=== PATIENT | female | born 1990 | race Caucasian/White ===

== ENCOUNTER → 2020-03-18 | Outpatient (CLI) | payer MEDICAID ==
[~2020-03-18] MED LIST: ACHD5005 PO; DOCU100C37 PO; FERR325T18 PO; FRS325T PO; IBP600T1 PO; IBUP-1773 PO; PREN1TAB39 PO; PROM12.59 PO
--- NOTE | 2020-03-18 14:33 | Diagnostic Imaging Report ---
INDICATION: Palpable lump around the left nipple. FINDINGS: Sonographic interrogation of the area of palpable abnormality was performed. There is a hypoechoic mass just below the skin surface. This measures 1.5 x 0.6 x 1.3 cm. There is color flow at the periphery but no internal blood flow is seen. This has the appearance of a sebaceous cyst. No posterior acoustic shadowing is present. IMPRESSION: Circumscribed hypoechoic mass just below the skin surface at the level of the 11 o'clock retroareolar region. This has the appearance of a sebaceous cyst. A followup left breast ultrasound in 3 months is recommended to show continued stability. ACR BI-RADS Category 3: Probably benign findings. Dictated by: Dictated on workstation # [id number]
== END ==
LOC: RAD 13:15
PROVIDERS: ATTEND Nurse Practitioner Family
DX: N63.22 Unspecified lump in the left breast, upper inner quadrant (principal)
CPT/HCPCS: 76642

== ENCOUNTER 2021-04-17 21:57 | Emergency (ER) | payer MEDICAID ==
[~2021-04-17] VITALS: Ht 162.6 cm; Wt 104.3 kg
[2021-04-17 22:08] VITALS: BP 121/86
[2021-04-17] MEDS ORDERED: DOXYCYCLINE 100 MG (VIBRAMYCIN) TABLET PO SCH (22:30)
[2021-04-17] MEDS ORDERED: DOXY100T2 PO (22:33)
--- NOTE | 2021-04-17 22:33 | ED Integumentary General ---
General Chief Complaint: Skin/Wound Problems Stated Complaint: SORE BREAST Source: patient Exam Limitations: no limitations (JEZ THOMSON APRN) History of Present Illness Date Seen by Provider: Apr 17, 2021 Time Seen by Provider: 22:28 Initial Comments To ER with reports of a sore on her left breast present for several months. She has been to various emergency rooms but has not followed with a primary care provider. She denies any fevers or chills. She does get some drainage out of this and it does have some redness. Timing/Duration: constant Severity: moderate Location: generalized Associated Symptoms: denies symptoms (JEZ THOMSON APRN) Allergies and Home Medications Allergies Coded Allergies: lesli (Verified Allergy, Intermediate, 04/17/15) lips swell sertraline (Unverified Allergy, Unknown, 04/17/15) Patient Home Medication List Home Medication List Reviewed: Yes (JEZ THOMSON APRN) Docusate Sodium (Docusate Sodium) 100 Mg Capsule, 100 MG PO BID PRN for CONSTIPATION Prescribed by: CARLOS FINLEY on 04/18/15728 Doxycycline Hyclate (Doxycycline Hyclate) 100 Mg Tablet, 100 MG PO BID Prescribed by: JEZ THOMSON on 04/17/212232 Ferrous Sulfate (Ferrous Sulfate) 325 Mg Tablet, 325 MG PO DAILY Prescribed by: CARLOS FINLEY on 04/18/15728 Hydrocodone Bit/Acetaminophen (Lortab 5 Mg Tablet) 1 Each Tablet, 1-2 TAB PO Q6H PRN for PAIN Prescribed by: CARLOS FINLEY on 04/18/15728 Ibuprofen (Ibuprofen) 600 Mg Tablet, 600 MG PO Q6H PRN for PAIN Prescribed by: CARLOS FINLEY on 04/18/15 07 Vits W-Ca,Fe,Fa(<1MG) () 1 Each Tablet, 1 EACH PO DAILY, (Reported) Entered as Reported by: MCKAY SWANSON on 05/19/101855 Review of Systems Review of Systems Constitutional: see HPI EENTM: see HPI Respiratory: no symptoms reported Cardiovascular: no symptoms reported Genitourinary: no symptoms reported Musculoskeletal: no symptoms reported Skin: see HPI (JEZ THOMSON APRN) Past Ryrmnge-Khryao-Vnnesi Hx Immunizations Up To Date Tetanus Booster (TDap): Less than 5yrs (JEZ THOMSON APRN) Past Medical History Reproductive Disorders: No Female Reproductive Disorders: Denies Sexually Transmitted Disease: Yes (chlamydia 11/2014 (CHRISTIANO neg 02/09); Trich) HIV/AIDS: No Hearing Impairment: Hard of Hearing Anxiety, Depression Adverse Reaction/Blood Tranf: No (JEZ THOMSON APRN) Family Medical History Cancer 09 SISTER ([place] -sister unk what kind or age) Dysphagia 03 MOTHER, Onset:Unknown Family history: Arthritis 03 FATHER (dad) 03 MOTHER Family history: Diabetes mellitus 03 FATHER (Type 1) 03 FATHER (type 2) 03 MOTHER Family history: Hypertension 03 FATHER 03 FATHER Family history: Thyroid disorder 09 SISTER Hearing loss Heart disease 09 BROTHER Stroke 03 MOTHER No Family History of: Abdominal aortic aneurysm Gaines's disease Alcoholism Aphasia Cancer of colon Cataract Chest pain Congenital heart disease Congestive heart failure Cystic fibrosis Dementia Family history: Allergy Family history: Alzheimer's disease Family history: Asthma Family history: Breast disease Family history: Cardiovascular disease Family history: Coronary thrombosis Family history: Gastrointestinal disease Family history: Glaucoma Family history: Osteoporosis Headache Hereditary disease History of - anemia History of - disorder History of - respiratory disease History of drug abuse Human immunodeficiency virus (HIV) seropositivity Hypercholesterolemia Infertile Kidney disease Malignant neoplasm of lung Myocardial infarction Parkinson's disease Prostate cancer Psychotic disorder Seizure disorder Tuberculosis Visual impairment Physical Exam Vital Signs Vital Signs - First Documented 04/17/21 22:08 Temp 37.1 Pulse 100 Resp 16 B/P (MAP) 121/86 (98) Pulse Ox 99 O2 Delivery Room Air (MARTIN,BALJIT K DO) Vital Signs Capillary Refill : (JEZ THOMSON APRN) General Appearance: WD/WN, no apparent distress, other (Alert, in fact hypervigilant but with delayed and very brief quiet verbal responses) HEENT: PERRL/EOMI, normal ENT inspection Neck: non-tender, full range of motion Respiratory: normal breath sounds, no respiratory distress, no accessory muscle use Extremities: normal range of motion, non-tender Neurologic/Psychiatric: alert, normal mood/affect, oriented x 3 Skin: normal color, warm/dry Skin Problem Character: abscess, other (There is some erythema and induration with central ulceration to the left breast. The half centimeter area of ulceration and purulent drainage is at the border of the areola is at the 11 o'clock position on the areola. There is some induration here. This was anesthetized with lidocaine with epinephrine. Then an incision made with an 11 blade scalpel. Culture collected and sent to lab. Cavity was then packed with quarter inch plain gauze.) (JEZ THOMSON APRN) Progress/Results/Core Measures Results/Orders Micro Results Microbiology 04/17/21 Gram Stain - Final, Resulted 04/17/21 Wound Culture - Preliminary, Resulted Gram Pos Mixed Bacterial Iesha Normal skin iesha (BALJIT SALAZAR DO) Vital Signs/I&O 04/17/21 22:08 Temp 37.1 Pulse 100 Resp 16 B/P (MAP) 121/86 (98) Pulse Ox 99 O2 Delivery Room Air (BALJIT SALAZAR DO) Departure Communication (Admissions) I very clearly stated to the patient and the female friend at the bedside the need to follow-up with primary care to get mammogram to make sure this does not represent a malignancy. (JEZ THOMSON APRN) Impression Primary Impression: Cellulitis Additional Impression: Abscess Disposition: HOME, SELF-CARE Condition: Stable Departure-Patient Inst. Decision time for Depature: 22:31 (JEZ THOMSON APRN) Referrals: COLEEN CASTAÑEDA DO (PCP/Family) Primary Care Physician ARISTIDES PAT DO Patient Instructions: Wound Care (DC) Add. Discharge Instructions: 1. It is vitally important that you follow-up with your primary care to get a mammogram and further imaging to ensure resolution of this. It would also be worthwhile to follow-up with one of the surgeons listed. Take the antibiotics and pain medication as directed. Call Tuesday for an appointment with primary care. That should be your first doctor's appointment. All discharge instructions reviewed with patient and/or family. Voiced understanding. Scripts Doxycycline Hyclate (Doxycycline Hyclate) 100 Mg Tablet 100 MG PO BID, #14 TAB 0 Refills Prov: JEZ THOMSON APRN 04/17/21 ATTENDING PHYSICIAN NOTE: I WAS PHYSICALLY PRESENT ER PHYSICIAN WHEN THIS PATIENT WAS IN ER, BUT I WAS NOT INVOLVED IN ANY DECISION MAKING OR ANY CARE OF THIS PATIENT. (BALJIT SALAZAR DO) JEZ THOMSON APRN Apr 17, 2021 22:33 BALJIT SALAZAR DO Apr 20, 2021 05:30
== END 2021-04-17 22:52 | disposition home or self-care (01) ==
LOC: EDUNIT# 21:57 → ER 22:00
DX: N61.0 Mastitis without abscess (principal); N61.1 Abscess of the breast and nipple
CPT/HCPCS: 87070; 87205; 99283

== ENCOUNTER 2021-11-22 19:17 | Emergency (ER) | payer MEDICAID ==
[~2021-11-22 19:17] MED LIST changes: +DOXY100T2 PO
[2021-11-22] MEDS ORDERED: LIDOCAINE 1% INJ 20 ML VIAL IJ ONE (20:00)
[2021-11-22] MEDS ORDERED: HYDROcodone/APAP 5 MG/325 MG (LORTAB) TAB PO ONE (20:00)
--- NOTE | 2021-11-22 20:12 | ED Integumentary General ---
General Chief Complaint: Skin/Wound Problems Stated Complaint: L BREAST, RED/HOT BLISTER Source: patient Exam Limitations: no limitations History of Present Illness Date Seen by Provider: Nov 22, 2021 Time Seen by Provider: 19:39 Initial Comments Here with report of left breast abscess. She has had [address] and had that opened and drained and packed. She was on antibiotics for a bit. She states it got better but then its return. She is got some surrounding redness and it does hurt. Does get spots in her armpits as well. Denies fever chills or other current abscesses. Timing/Duration: week, getting worse Severity: moderate Location: torso (Left breast) Possible Cause: no cause identified Associated Symptoms: change in skin texture, edema Allergies and Home Medications Allergies Coded Allergies: lesli (Verified Allergy, Intermediate, 04/17/15) lips swell sertraline (Unverified Allergy, Unknown, 04/17/15) Patient Home Medication List Home Medication List Reviewed: Yes Docusate Sodium (Docusate Sodium) 100 Mg Capsule, 100 MG PO BID PRN for CONSTIPATION Prescribed by: CARLOS FINLEY on 04/18/15728 Doxycycline Hyclate (Doxycycline Hyclate) 100 Mg Tablet, 100 MG PO BID Prescribed by: JEZ THOMSON on 04/17/212232 Ferrous Sulfate (Ferrous Sulfate) 325 Mg Tablet, 325 MG PO DAILY Prescribed by: CARLOS FINLEY on 04/18/15728 Hydrocodone Bit/Acetaminophen (Lortab 5 Mg Tablet) 1 Each Tablet, 1-2 TAB PO Q6H PRN for PAIN Prescribed by: CARLOS FINLEY on 04/18/15728 Ibuprofen (Ibuprofen) 600 Mg Tablet, 600 MG PO Q6H PRN for PAIN Prescribed by: CARLOS FINLEY on 04/18/15728 Vits W-Ca,Fe,Fa(<1MG) () 1 Each Tablet, 1 EACH PO DAILY, (Reported) Entered as Reported by: MCKAY SWANSON on 05/19/10 572 Review of Systems Review of Systems Constitutional: see HPI; No chills, No fever Respiratory: no symptoms reported Cardiovascular: no symptoms reported Skin: see HPI, change in color, lesions Past Znvxpka-Jqkvcp-Wtthgo Hx Patient Social History Tobacco Use?: Yes Smoking Status: Current Everyday Smoker Substance use?: No Alcohol Use?: Yes Alcohol Frequency: Once in a while Immunizations Up To Date Tetanus Booster (TDap): Less than 5yrs COVID19 Vaccine Park Attendant: 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 HAD 2 VACCINES PLUS BOOSTER Past Medical History Surgeries: Yes Section Respiratory: No Cardiac: No Neurological: No Reproductive Disorders: No Female Reproductive Disorders: Denies Sexually Transmitted Disease: Yes (chlamydia 11/2014 (CHRISTIANO neg 02/09); Trich) HIV/AIDS: No Hearing Impairment: Hard of Hearing Anxiety, Depression Adverse Reaction/Blood Tranf: No Family Medical History Reviewed Nursing Family Hx Cancer 09 SISTER ([place] -sister unk what kind or age) Dysphagia 03 MOTHER, Onset:Unknown Family history: Arthritis 03 FATHER (dad) 03 MOTHER Family history: Diabetes mellitus 03 FATHER (Type 1) 03 FATHER (type 2) 03 MOTHER Family history: Hypertension 03 FATHER 03 FATHER Family history: Thyroid disorder 09 SISTER Hearing loss Heart disease 09 BROTHER Stroke 03 MOTHER Physical Exam Vital Signs Vital Signs - First Documented 11/22/21 19:34 Temp 35.3 Pulse 86 Resp 16 B/P (MAP) 137/80 (99) Pulse Ox 100 O2 Delivery Room Air Capillary Refill : General Appearance: WD/WN, mild distress Cardiovascular: regular rate, rhythm, no murmur Respiratory: lungs clear, normal breath sounds Skin: warm/dry Skin Problem Character: abscess, erythema, other (Left breast medial and superior to areola with 4 to 5 cm of surrounding erythema surrounding 1.5 cm central pustule) Procedures/Interventions I&D : Site: Left breast 11 o'clock position Blade Size: 11 I & D Procedure: betadine prep Packing/Drain: Idoform 1/2 Progress Site identified and cleaned with Betadine. Anesthetized with 10 mL of 1% lidocaine. 2 cm incision into abscess with copious purulent drainage. Culture obtained. Wound cleaned with saline and gauze sponge. Packed with half-inch iodoform and covered with dressing. Tolerated procedure well with no complications. Progress/Results/Core Measures Results/Orders My Orders Orders - GEENA SANCHEZ MD Wound Culture (11/22/21 19:48) Hydrocodone/Apap 5/325 Tablet (Lortab 5 (11/22/21 20:00) Lidocaine 1% Inj 20 Ml (Xylocaine 1% Inj (11/22/21 20:00) Medications Given in ED Current Medications Medications Dose Ordered Sig/Rimma Route Start Time Stop Time Status Last Admin Dose Admin Acetaminophen/ Hydrocodone Bitart 1 ea ONCE ONCE PO 11/22/21 20:00 11/22/21 20:01 DC 11/22/21 19:53 1 EA Lidocaine HCl 20 ml UD ONCE IJ 11/22/21 20:00 11/22/21 20:01 DC 11/22/21 19:54 20 ML Vital Signs/I&O 11/22/21 19:34 Temp 35.3 Pulse 86 Resp 16 B/P (MAP) 137/80 (99) Pulse Ox 100 O2 Delivery Room Air Progress Progress Note : Progress Note Seen and evaluated. Hydrocodone 5/325 1 tab p.o. ordered. We will proceed with I&D of the left breast with wound culture. Monitor patient. 2042: Discussed case with Dr. Hodgson. He will see the patient in office tomorrow. She is to call for appointment. We will initiate antibiotics. Discharged home with return precautions. Patient verbalized understanding instructions and agreement with plan. Departure Impression Primary Impression: Abscess Disposition: , SELF-CARE Condition: Improved Departure-Patient Inst. Decision time for Depature: 20:45 Referrals: COLEEN CASTAÑEDA DO (PCP/Family) Primary Care Physician LISA HODGSON DO Patient Instructions: Abscess Incision and Drainage Add. Discharge Instructions: All discharge instructions reviewed with patient and/or family. Voiced understanding. Follow-up with Dr. Hodgson tomorrow. Call his office in the morning for celsa ointment tomorrow. Let them know that you were seen in the ER and you were following up after incision and drainage as discussed with Dr. Hodgson. Take medications as directed. You may take Tylenol/acetaminophen 1000 mg every 6-8 hours as needed for pain. You may take ibuprofen 600 mg every 8 hours as needed for pain. You may change top dressing as it becomes soiled. Keep wick in place. You will have dressing changes done at the office tomorrow and they will show you how to pack it after that. Return for worse pain, fever, increasing redness or other concerns as needed. Scripts Doxycycline Hyclate (Doxycycline Hyclate) 100 Mg Tablet 100 MG PO BID, #14 TAB 0 Refills Prov: GEENA SANCHEZ MD 11/22/21 Copy Copies To 1: LISA HODGSON TIMOTHY D MD Nov 22, 2021 20:12
[2021-11-22] MEDS ORDERED: DOXYCYCLINE 100 MG (VIBRAMYCIN) TABLET PO STA (20:44)
[2021-11-22] MEDS ORDERED: DOXY100T2 PO (20:47)
[2021-11-22 20:54] VITALS: BP 115/70
== END 2021-11-22 20:56 | disposition home or self-care (01) ==
LOC: EDUNIT# 19:17 → ER 19:19
DX: N61.1 Abscess of the breast and nipple (principal); F17.200 Nicotine dependence, unspecified, uncomplicated
CPT/HCPCS: 10060; 87070; 87205

== ENCOUNTER → 2022-01-05 | Outpatient (CLI) | payer MEDICAID ==
--- NOTE | 2022-01-05 16:41 | Diagnostic Imaging Report ---
INDICATION: Left breast abscess. COMPARISON: Correlation is made with the prior study from 03/18/2020. FINDINGS: The previously noted area of ovoid hypo-echogenicity just below the skin surface at the 11 o'clock periareolar region is again noted measuring 1.3 x 0.4 x 1.3 cm compared with 1.5 x 0.6 x 1.3 cm on the prior exam. This does show some internal debris. There is vascularity along the periphery but no internal vascularity is seen. This again is suggestive of a sebaceous cyst. No new abnormality is detected. IMPRESSION: Slight decrease in size of the complex cystic lesion in the subcutaneous tissues of the left breast 11 o'clock periareolar region. ACR BI-RADS Category 2: Benign findings. Dictated by: Dictated on workstation # [id number]
== END ==
LOC: RAD 12:58
PROVIDERS: ATTEND Surgery
DX: N60.02 Solitary cyst of left breast (principal); N61.1 Abscess of the breast and nipple

== ENCOUNTER 2022-01-07 10:00 | Outpatient (CLI) | payer MEDICAID ==
[~2022-01-07] VITALS: Ht 165 cm; Wt 101.0 kg
[2022-01-08] MEDS ORDERED: ACHD5005 PO (13:47)
== END 2022-01-07 11:09 | disposition home or self-care (01) ==
LOC: PREOP 10:00
PROVIDERS: ATTEND Surgery
DX: Z01.818 Encounter for other preprocedural examination (principal)

== ENCOUNTER 2022-01-08 11:22 | Day surgery (SDC) | payer MEDICAID ==
[2022-01-08] VITALS (8 sets, daily range): BP systolic 87–115; BP diastolic 46–73
[2022-01-08] MEDS ORDERED: ceFAZolin INJECTION 2,000 MG in NS (IVPB) 50 ML IV ONE ×2 (11:45→12:00)
[2022-01-08] MEDS ORDERED: LACTATED RINGERS 1,000 ML IV PRN (12:00)
[2022-01-08] MEDS ORDERED: BUP/EPI 0.5% 1:200,000 (MARCAINE) 10ML VIAL IJ ONE ×2 (12:04→12:17)
[2022-01-08] MEDS ORDERED: ONDANSETRON 4 MG/2 ML (SDV) Z0FRAN ONE (12:49)
[2022-01-08] MEDS ORDERED: proPOfol 200 MG/20 ML (DIPRIVAN) VIAL IV ONE (12:49)
[2022-01-08] MEDS ORDERED: LIDOCAINE PF 2% 5 ML (XYLOCAINE) VIAL ONE (12:49)
[2022-01-08] MEDS ORDERED: fentaNYL INJ 100 MCG/2 ML AMP ONE (12:50)
[2022-01-08] MEDS ORDERED: MIDAZOLAM 2 MG/2 ML (VERSED) VIAL ONE (12:50)
[2022-01-08] MEDS ORDERED: HYDROmorphone 2 MG/ML VIAL (DILAUDID) IV ONE (13:00)
[2022-01-08] MEDS ORDERED: ONDANSETRON 4 MG/2 ML (SDV) Z0FRAN IVP PRN ×2 (13:00→14:00)
[2022-01-08] MEDS ORDERED: morphine INJ 10 MG/ML 1ML (SYR OR VIAL) IVP ONE ×2 (13:00→14:00)
--- NOTE | 2022-01-08 13:03 | Progress Note-Pre Operative ---
Pre-Operative Progress Note Date of Available H&P: Jan 04, 2022 Date H&P Reviewed: Jan 08, 2022 Time H&P Reviewed: 13:03 History & Physical: H&P Reviewed, Patient Examed, No changes noted Pre-Operative Diagnosis: left breast abscess LISA HODGSON DO Jan 08, 2022 13:03
[2022-01-08] MEDS ORDERED: BUPIVACAINE 0.5% 30 ML (SENSORCAINE) VIAL ONE (13:08)
[2022-01-08] MEDS ORDERED: BUPIVACAINE 0.5% 30 ML (SENSORCAINE) VIAL INJ ONE (13:19)
[2022-01-08] MEDS ORDERED: SEVOFLURANE (ULTANE) 15 ML INHAL SOLN ONE (13:38)
[2022-01-08] MEDS ORDERED: ACHD5005 PO (13:47)
--- NOTE | 2022-01-08 13:50 | Discharge Inst-Simple/Standard ---
Discharge Inst-Standard Discharge Medications New, Converted or Re-Newed RX: Transmitted to Pharmacy Patient Instructions/Follow Up Plan of Care/Instructions/FU: 2 weeks Yumiko Activity as Tolerated: Yes Discharge Diet: Regular Diet Other Inst to Patient Follow up Appt: Make appointment for 2 week. Instructions: No lifting greater than 10 pounds. No strenuous activity. May shower in 24 hours, no tub bath or soaking. Use incentive spirometer at home as directed. No Smoking Skin/Wound Care: You have steri-strips over incision it will fall off on its own. Keep area clean and dry. Any issues be seen at that time. Symptoms to Report: Appetite Changes, Extremity Discoloration, Numbness/Tingling, Swelling Increased, Bleeding Excessive, Eyesight Changes, Pain Increased, Urine Color Change, Constipation(Persistent), Fever over 101 degree F, Pain/Pressure in chest, Urinating Difficulty, Cough Up/Vomit Blood, Heart Beat Irreg/Pounding, Pain/Pressure in jaw, Vaginal Bleeding Increase, Cramps in feet or legs, Lightheadedness, Pain/Pressure in shoulder, Diarrhea(Persistent), Memory Changes Suddenly, Questions/Concerns, Weight gain consecutive days, Dizziness/Fainting, Nausea/Vomiting, Shortness of Breath, Weight gain over 2 pounds If questions or concerns contact your physician Or seek help at emergency department. LISA HODGSON DO Jan 08, 2022 13:50
--- NOTE | 2022-01-08 13:51 | Progress Note-Post Operative ---
Post-Operative Progess Note Surgeon (s)/Performance Test Engineer (s) Surgeon LISA HODGSON DO Performance Test Engineer: na Pre-Operative Diagnosis left breast abscess Post-Operative Diagnosis left breast cyst Procedure & Operative Findings Date of Procedure 01/08/22 Procedure Performed/Findings excision left breast cyst 3.8x1.6 cm Anesthesia Type general Estimated Blood Loss Estimated blood loss (mL): minimal Specimens/Packing Specimens Removed left breast cyst LISA HODGSON DO Jan 08, 2022 13:51
[2022-01-08] MEDS ORDERED: fentaNYL INJ 100 MCG/2 ML AMP IVP ONE (14:00)
[2022-01-08] MEDS ORDERED: HYDROcodone/APAP 5 MG/325 MG (LORTAB) TAB PO ONE (15:00)
--- NOTE | 2022-01-08 18:51 | Anesthesia-General Post-Op ---
General Patient Condition Mental Status/LOC: Same as Preop Cardiovascular: Satisfactory Nausea/Vomiting: Absent Respiratory: Satisfactory Pain: Controlled Complications: Absent Post Op Complications Complications None Follow Up Care/Instructions Patient Instructions None needed. Anesthesia/Patient Condition Patient Condition Patient is doing well, no complaints, stable vital signs, no apparent adverse anesthesia problems. No complications reported per nursing. ELANA ZHONG CRNA Jan 08, 2022 18:51
--- NOTE | 2022-01-08 21:12 | OPERATIVE REPORT ---
DATE OF SERVICE: 01/08/2022 PREOPERATIVE DIAGNOSIS: Left breast abscess. POSTOPERATIVE DIAGNOSIS: Left breast cyst. PROCEDURE: Excision of left breast cyst 3.8 x 1.6 cm. SURGEON: Lisa Calderon DO ANESTHESIA: General. ESTIMATED BLOOD LOSS: Minimal. COMPLICATIONS: None. SPECIMENS: Left breast cyst. INDICATIONS: The patient is a 31-year-old female with a tender area in the left breast, felt to be an abscess, but also consideration of a cyst present. She understands risks and benefits of procedure and wishes to proceed. Consent was signed in the chart. DESCRIPTION OF PROCEDURE: The patient was taken to the operating suite. She was prepped and draped in sterile fashion. Timeout was performed. Local anesthetic was infiltrated around the area of the left breast at about the 10 o'clock position near the areola. A 15 blade scalpel was used to make an elliptical incision around the area, dissecting down through the skin and subcutaneous tissues. Then, cautery was used. A small amount of material came from the area, which felt more to be a breast cyst. A culture was obtained though. The cyst was then dissected completely around with cautery. Also noting a small amount of the areola had to be removed. Overall dimensions were 3.8 x 1.6 cm. The wound was then irrigated with copious amounts of irrigation once the tissue was removed. Hemostasis was achieved. Using 3-0 Vicryl, the skin was then reapproximated keeping the areolar line aligned together. The skin was then closed using 4-0 Monocryl. The area was then washed and dried, and Mastisol and Steri-Strips were applied. The patient tolerated procedure well without any complications. She was taken to recovery room in stable condition. Job ID: [id number] DocumentID: [id number] Dictated Date: 01/08/2022 13:54:13 Auto Collision Repair Instructor Date: 01/08/2022 21:10:44 Dictated By: LISA CALDERON DO
== END 2022-01-08 15:25 | disposition home or self-care (01) ==
LOC: SDC 11:22
PROVIDERS: ATTEND Surgery
DX: N61.1 Abscess of the breast and nipple (principal); N60.02 Solitary cyst of left breast; N60.32 Fibrosclerosis of left breast; F17.210 Nicotine dependence, cigarettes, uncomplicated; E66.9 Obesity, unspecified; Z68.37 Body mass index [BMI] 37.0-37.9, adult
CPT/HCPCS: 84703; 87070; 87075; 87077; 87081; 87186; 87205

== ENCOUNTER 2022-01-22 19:42 | Emergency (ER) | payer MEDICAID ==
--- NOTE | 2022-01-22 20:00 | ED General ---
General Chief Complaint: Post OP Complications/Pain Stated Complaint: POST OP BREAST STITCHING/GLUE COMING APART,BURNING Source of Information: Patient Exam Limitations: No Limitations History of Present Illness Date Seen by Provider: Jan 22, 2022 Time Seen by Provider: 19:57 Initial Comments To ER with reports of postoperative breast wound coming apart. She works at [employer] and has noticed some burning pain. Tonight one of the Steri- Strips fell off of the incision and she was able to see an area of about 1/2 cm of dehiscence which alarmed her. She has been having to change the gauze dressing about 2-3 times a day due to serosanguineous drainage. This was initially believed to be a cyst, excised by Dr. Calderon, turns out it was an abscess, culture showed Staphylococcus lugdunensis sensitive to clindamycin and she is currently on clindamycin. She denies any fever chills or redness. Timing/Duration: 12-24 Hours Severity: Mild Associated Systoms: Denies Symptoms Allergies and Home Medications Allergies Coded Allergies: lesli (Verified Allergy, Intermediate, 04/17/15) lips swell Patient Home Medication List Home Medication List Reviewed: Yes Hydrocodone/Acetaminophen (Hydrocodone-Acetamin 5-325 mg) 5 Mg-325 Mg Tablet, 1 EACH PO Q4H PRN for PAIN-MODERATE (5-7) Prescribed by: LISA CALDERON on 01/08/22 1347 Review of Systems Review of Systems Constitutional: see HPI EENTM: see HPI Respiratory: no symptoms reported Cardiovascular: no symptoms reported Genitourinary: no symptoms reported Musculoskeletal: no symptoms reported Skin: see HPI Psychiatric/Neurological: No Symptoms Reported Hematologic/Lymphatic: No Symptoms Reported (Serosanguineous) Past Wbjdrtw-Xcvpda-Hmuwhd Hx Immunizations Up To Date Tetanus Booster (TDap): Less than 5yrs First/Initial COVID19 Vaccinat: 2020 Second COVID19 Vaccination Joey: 2020 Third COVID19 Vaccination Date: 2021 Seasonal Allergies Seasonal Allergies: Yes Past Medical History Surgeries: Yes Section Respiratory: No Cardiac: No Neurological: No Reproductive Disorders: No Female Reproductive Disorders: Denies Sexually Transmitted Disease: Yes (chlamydia 11/2014 (CHRISTIANO neg 02/09); Trich) HIV/AIDS: No Gastrointestinal: No Musculoskeletal: No Endocrine: No HEENT: Yes (GLASSES) Hearing Impairment: Hard of Hearing Cancer: No Psychosocial: Yes Anxiety, Depression Integumentary: Yes (CYST ON LEFT BREAST) Blood Disorders: No Adverse Reaction/Blood Tranf: No Family Medical History Cancer 09 SISTER ([place] -sister unk what kind or age) Dysphagia 03 MOTHER, Onset:Unknown Family history: Arthritis 03 FATHER (dad) 03 MOTHER Family history: Diabetes mellitus 03 FATHER (Type 1) 03 FATHER (type 2) 03 MOTHER Family history: Hypertension 03 FATHER 03 FATHER Family history: Thyroid disorder 09 SISTER Hearing loss Heart disease 09 BROTHER Stroke 03 MOTHER No Family History of: Abdominal aortic aneurysm James's disease Alcoholism Aphasia Cancer of colon Cataract Chest pain Congenital heart disease Congestive heart failure Cystic fibrosis Dementia Family history: Allergy Family history: Alzheimer's disease Family history: Asthma Family history: Breast disease Family history: Cardiovascular disease Family history: Coronary thrombosis Family history: Gastrointestinal disease Family history: Glaucoma Family history: Osteoporosis Headache Hereditary disease History of - anemia History of - disorder History of - respiratory disease History of drug abuse Human immunodeficiency virus (HIV) seropositivity Hypercholesterolemia Infertile Kidney disease Malignant neoplasm of lung Myocardial infarction Parkinson's disease Prostate cancer Psychotic disorder Seizure disorder Tuberculosis Visual impairment Physical Exam Vital Signs Capillary Refill : Height, Weight, BMI Height: 5'4.00" Weight: 216lbs. 4.0oz. 97.952598yb; 37.09 BMI Method: General Appearance: No Apparent Distress, WD/WN Eyes: Bilateral Eye Normal Inspection, Bilateral Eye PERRL Neck: Full Range of Motion, Normal Inspection Respiratory: No Accessory Muscle Use, No Respiratory Distress Cardiovascular: Regular Rate, Rhythm, Normal Peripheral Pulses Gastrointestinal: Normal Bowel Sounds, Non Tender, Soft Extremity: Normal Capillary Refill, Normal Inspection Neurologic/Psychiatric: Alert, Oriented x3 Skin: Normal Color, Warm/Dry, Other (The left breast incision at the 11 o'clock position is intact. In the middle of the incision is about a 1 cm area in length of wound dehiscence, edges by about 1/2 cm, covered with eschar. Minimal serosanguineous drainage. Only one of the Steri-Strips is missing. No surrounding induration or erythema or cellulitis. This overall looks good.) Progress/Results/Core Measures Suspected Sepsis SIRS Temperature: Pulse: Respiratory Rate: Blood Pressure / Mean: Results/Orders Vital Signs/I&O Capillary Refill : Departure Impression Primary Impression: Postoperative wound dehiscence Disposition: 01 HOME, SELF-CARE Condition: Stable Departure-Patient Inst. Decision time for Depature: 20:00 Referrals: COLEEN CASTAÑEDA DO (PCP/Family) Primary Care Physician Patient Instructions: Wound Dehiscence JEZ THOMSON APRN Jan 22, 2022 20:00
[2022-01-22 20:05] VITALS: BP 133/78
== END 2022-01-22 20:06 | disposition home or self-care (01) ==
LOC: EDUNIT# 19:42 → ER 19:44
DX: T81.31XA Disruption of external operation (surgical) wound, not elsewhere classified, initial encounter (principal)
CPT/HCPCS: 99281

== ENCOUNTER 2022-03-18 12:19 | Emergency (ER) | payer MEDICAID ==
[~2022-03-18] VITALS: Ht 162.5 cm; Wt 100.0 kg
[2022-03-18 12:25] VITALS: BP 121/72
--- NOTE | 2022-03-18 12:44 | ED General ---
General Chief Complaint: General Problems/Pain Stated Complaint: RT SIDE FACE SWOLLEN Source of Information: Patient Exam Limitations: No Limitations History of Present Illness Date Seen by Provider: Mar 18, 2022 Time Seen by Provider: 12:30 Initial Comments 31-year-old female who is otherwise healthy presents the emergency department today for lip swelling. She states symptoms started 2 days ago. She has a sore on her upper lip in the midline. No fevers chills nausea or vomiting. No difficulty speaking or swallowing. No Shortness of breath. Allergies and Home Medications Allergies Coded Allergies: lesli (Verified Allergy, Intermediate, 03/18/22) lips swell Patient Home Medication List Home Medication List Reviewed: Yes Hydrocodone/Acetaminophen (Hydrocodone-Acetamin 5-325 mg) 5 Mg-325 Mg Tablet, 1 EACH PO Q4H PRN for PAIN-MODERATE (5-7) Prescribed by: LISA HODGSON on 01/08/22 8290 Review of Systems Review of Systems Constitutional: no symptoms reported EENTM: other (Sore on upper lip) Respiratory: no symptoms reported Cardiovascular: no symptoms reported Gastrointestinal: no symptoms reported Genitourinary: no symptoms reported Musculoskeletal: no symptoms reported Skin: other (Sore on upper lip) Psychiatric/Neurological: No Symptoms Reported Hematologic/Lymphatic: No Symptoms Reported Immunological/Allergic: no symptoms reported Past Nevehfx-Umidqo-Iotrtq Hx Patient Social History Tobacco Use?: No Use of E-Cig and/or Vaping dev: No Substance use?: No Alcohol Use?: No Immunizations Up To Date Tetanus Booster (TDap): Less than 5yrs First/Initial COVID19 Vaccinat: 2020 Second COVID19 Vaccination Joey: 2020 Third COVID19 Vaccination Date: 2021 Seasonal Allergies Seasonal Allergies: Yes Past Medical History Surgeries: Yes Section Respiratory: No Cardiac: No Neurological: No Reproductive Disorders: No Female Reproductive Disorders: Denies Sexually Transmitted Disease: Yes (chlamydia 11/2014 (CHRISTIANO neg 02/09); Trich) HIV/AIDS: No Gastrointestinal: No Musculoskeletal: No Endocrine: No HEENT: Yes (GLASSES) Hearing Impairment: Hard of Hearing Cancer: No Psychosocial: Yes Anxiety, Depression Integumentary: Yes (CYST ON LEFT BREAST) Blood Disorders: No Adverse Reaction/Blood Tranf: No Family Medical History Cancer 09 SISTER ([place] -sister unk what kind or age) Dysphagia 03 MOTHER, Onset:Unknown Family history: Arthritis 03 FATHER (dad) 03 MOTHER Family history: Diabetes mellitus 03 FATHER (Type 1) 03 FATHER (type 2) 03 MOTHER Family history: Hypertension 03 FATHER 03 FATHER Family history: Thyroid disorder 09 SISTER Hearing loss Heart disease 09 BROTHER Stroke 03 MOTHER No Family History of: Abdominal aortic aneurysm James's disease Alcoholism Aphasia Cancer of colon Cataract Chest pain Congenital heart disease Congestive heart failure Cystic fibrosis Dementia Family history: Allergy Family history: Alzheimer's disease Family history: Asthma Family history: Breast disease Family history: Cardiovascular disease Family history: Coronary thrombosis Family history: Gastrointestinal disease Family history: Glaucoma Family history: Osteoporosis Headache Hereditary disease History of - anemia History of - disorder History of - respiratory disease History of drug abuse Human immunodeficiency virus (HIV) seropositivity Hypercholesterolemia Infertile Kidney disease Malignant neoplasm of lung Myocardial infarction Parkinson's disease Prostate cancer Psychotic disorder Seizure disorder Tuberculosis Visual impairment Physical Exam Vital Signs Capillary Refill : Height, Weight, BMI Height: 5'4.00" Weight: 216lbs. 4.0oz. 97.992518ag; 37.09 BMI Method: General Appearance: No Apparent Distress, WD/WN Eyes: Bilateral Eye Normal Inspection, Bilateral Eye PERRL, Bilateral Eye EOMI HEENT: TMs Normal, Normal ENT Inspection, Pharynx Normal, Other (Cold sore midline upper lip) Neck: Normal Inspection, Non Tender Respiratory: Chest Non Tender, Lungs Clear, Normal Breath Sounds, No Accessory Muscle Use, No Respiratory Distress Cardiovascular: Regular Rate, Rhythm, No Murmur, Normal Peripheral Pulses Gastrointestinal: Normal Bowel Sounds, No Organomegaly Extremity: Normal Capillary Refill, Normal Inspection, Normal Range of Motion, Non Tender, No Calf Tenderness Neurologic/Psychiatric: Alert, Oriented x3, Normal Mood/Affect Skin: Normal Color, Other (Cold sore midline on upper lip) Progress/Results/Core Measures Suspected Sepsis SIRS Temperature: Pulse: Respiratory Rate: Blood Pressure / Mean: Results/Orders Vital Signs/I&O Capillary Refill : Departure Communication (Admissions) Patient is hemodynamically stable. She has resolving a cold sore on her left upper lip. Given conservative measures and discharged in stable condition. Counseled on the chronic nature of this and possibly follow-up with her primary doctor for prescription for acyclovir to have on hand for sinus symptoms however given that she has had symptoms for 2 days is not likely to help at this time Impression Primary Impression: Cold sore Disposition: 01 HOME, SELF-CARE Condition: Stable Departure-Patient Inst. Referrals: MERLE GUZMAN MD (PCP/Family) Primary Care Physician Patient Instructions: Cold Sores (Oral Herpes) (DC) Add. Discharge Instructions: Use ibuprofen and Tylenol as needed for pain. Place Vaseline to the area couple times a day to help moist. Is likely little bit worse before it gets better. It will start to scab and crack when you open your mouth wide which is also normal. This may be a recurrent issue. I recommend you go to your primary doctor and have a medicine on hand that can be taken at the very for sinus s ymptoms which may help. At present there is likely not a lot that will help. You may try some Abreva [id number]. Return to the emergency department for any severe concerns All discharge instructions reviewed with patient and/or family. Voiced und erstanding. SUZANNA RAWLS DO Mar 18, 2022 12:44
== END 2022-03-18 12:48 | disposition home or self-care (01) ==
LOC: EDUNIT# 12:19 → ER 12:21
DX: B00.1 Herpesviral vesicular dermatitis (principal); Z28.310 Unvaccinated for COVID-19
CPT/HCPCS: 99281

== ENCOUNTER → 2022-05-10 | Outpatient (CLI) | payer MEDICAID ==
--- NOTE | 2022-05-10 11:32 | Diagnostic Imaging Report ---
Indication: Left breast abscess. Correlation is made with prior left breast ultrasound from 01/05/2022. Sonographic interrogation periareolar left breast was performed. There is an area of heterogeneity just below the skin surface in the 10:00 retroareolar left breast measuring 2.1 x 0.8 x 2.1 cm. This does show some internal vascularity and may represent inflammatory tissue. No discrete fluid collection or abscess is seen at this time. IMPRESSION: BI-RADS Category 2 Inflammatory changes at the 10:00 retroareolar left breast. No discrete fluid collection or abscess is seen. ACR BI-RADS Category 2: Benign findings. Dictated by: Dictated on workstation # [id number]
== END ==
LOC: RAD 10:21
PROVIDERS: ATTEND Surgery
DX: N61.1 Abscess of the breast and nipple (principal)

== ENCOUNTER 2022-10-29 22:36 | Emergency (ER) | payer MEDICAID ==
[~2022-10-29] VITALS: Ht 162.5 cm; Wt 98.4 kg
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
[2022-10-29] MEDS ORDERED: NAPR500T8 PO (23:22)
[2022-10-29 23:27] VITALS: BP 126/56
--- NOTE | 2022-10-30 07:03 | Diagnostic Imaging Report ---
INDICATION: Right foot pain. Time of Exam: 1104 PM 3 views of the right foot were obtained. Metatarsals are intact. Phalanges appear intact. Midfoot and hindfoot are unremarkable. No fractures are seen. IMPRESSION: No acute bony abnormality is detected. Dictated by: Dictated on workstation # [id number]
== END 2022-10-29 23:27 | disposition home or self-care (01) ==
LOC: EDUNIT# 22:36 → ER 22:38
DX: M79.671 Pain in right foot (principal); F17.210 Nicotine dependence, cigarettes, uncomplicated
CPT/HCPCS: 73630

== ENCOUNTER → 2022-12-27 | Outpatient (CLI) | payer MEDICAID ==
[~2022-12-27] MED LIST changes: +NAPR500T8 PO
== END ==
LOC: RAD 13:13
PROVIDERS: ATTEND Surgery
DX: Z53.9 Procedure and treatment not carried out, unspecified reason (principal)